=== PATIENT | female | born 1990 | race Caucasian/White ===

== ENCOUNTER 2020-02-09 22:07 | Emergency (ER) | payer OTHER, SELFPAY ==
--- NOTE | ~2020-02-09 | XR_ITS ---
EXAMINATION: XR chest 1V portable EXAM DATE: 02/10/2020 00:27 INDICATION: Fever. TECHNIQUE: Portable AP frontal chest x-ray was obtained. Comparison is made to prior examination from 06/21/2018. FINDINGS: The lungs are clear. There are no pleural effusions. The cardiomediastinal silhouette is within normal limits. There is no pneumothorax suspected. The bones and soft tissues are unremarkab le. IMPRESSION: Normal chest x-ray exam. Reviewed, dictated and finalized at location [facility]. BIRD FARMER IMPRESSION: Normal chest x-ray exam.
[2020-02-09 22:07] VITALS: BP 124/91; PULSE 120; RESP 20; TEMP 36.6; O2SAT 100
--- NOTE | 2020-02-09 22:21 | ECG_ITS ---
Measurements Intervals [place] Rate: 94 P: 26 DC: 142 QRS: 9 QRSD: 82 T: 10 QT: 325 QTc: 408 Interpretive Statements SINUS RHYTHM NORMAL ECG Electronically Signed On 02-10-2020 14:21:27 DIRECT MARKETING COORDINATOR by Shahid Feliciano D.O.
[2020-02-09 22:51] VITALS: BP 118/79; PULSE 106; RESP 20; TEMP 37.3; O2SAT 100
--- NOTE | 2020-02-09 22:53 | PC.NURSE ---
2253- Patient is sitting on the bed, patient is in the direct view of sitter.
[2020-02-09 23:15] LABS: Basophils Absolute Auto 0.02 K/mm3 (0.00-0.10); Basophils Percent Auto 0.2 % (0.0-1.0); Eosinophils Absolute Auto 0.17 K/mm3 (0.02-0.50); Eosinophils Percent Auto 1.8 % (1.0-6.0); Hematocrit 43.2 % (35.0-49.0); Hemoglobin 14.3 g/dL (12.0-15.0); Immature Granulocyte Absolute 0.06 K/mm3 (0.00-0.00); Immature Granulocyte Percent A 0.6 % (0.0-0.0); Lymphocytes Absolute Auto 3.26 K/mm3 (1.10-4.50); Lymphocytes Percent Auto 33.6 % (18.0-42.0); Mean Corpuscular HGB Conc 33.1 g/dL (32.0-36.0); Mean Corpuscular Hemoglobin 32.1 pg (27.0-31.0); Mean Corpuscular Volume 97.1 fL (78.0-102.0); Mean Platelet Volume 9.8 fl (9.2-11.8); Monocytes Absolute Auto 0.64 K/mm3 (0.10-0.90); Monocytes Percent Auto 6.6 % (2.0-11.0); Neutrophils Absolute Auto 5.6 K/mm3 (1.7-7.2); Neutrophils Percent Auto 57.2 % (50.0-70.0); Platelet Count Result 305 K/mm3 (150-420); Red Blood Count 4.45 M/mm3 (4.20-5.40); Red Cell Distribution Width 13.2 % (11.6-14.4); White Blood Count 9.7 K/mm3 (4.8-10.8)
--- NOTE | 2020-02-09 23:25 | PC.NURSE ---
2325-Patient sitting on bed drinking her water, patient is in the direct view of sitter.
[2020-02-09 23:26] LABS: Pregnancy On Board Control Positive; Urine Pregnancy Test Negative
[2020-02-09 23:35] LABS: Add Urine Microscopic? YES; Appearance Urine Clear (Clear); Bilirubin Urine Negative (Negative); Blood Urine 1+ (Negative); Color Urine Yellow (Yellow); Glucose Urine UA Negative (Negative); Ketones Urine Negative (Negative); Leukocyte Esterase Ur Negative LEU/UL (Negative); Nitrate Urine Negative (Negative); Protein Urine Negative (Negative); Specific Grav Ur <= 1.005 (1.010-1.020); Urobilinogen Urine 0.2 mg/dL (0.2-1.0)
[2020-02-09 23:41] LABS: Amphetamine Screen Urine Positive (Negative); Barbiturate Screen Urine Negative (Negative); Benzodiazepines Screen Urine Negative (Negative); Cannabinoid Screen Urine Negative (Negative); Cocaine Screen Urine Negative (Negative); Methadone Screen Urine Negative (Negative); Opiate Screen Urine Negative (Negative); Phencyclidine Screen Urine Negative (Negative)
[2020-02-09 23:43] LABS: Alanine Aminotransferase 29 U/L (14-59); Albumin Level 3.8 g/dL (3.4-5.0); Alkaline Phosphatase 88 U/L (46-116); Anion Gap 10 mmol/L (8-16); Aspartate Amino Transferase 15 U/L (15-37); Bilirubin,Total 0.5 mg/dL (0.00-1.00); Blood Urea Nitrogen 9 mg/dL (7-18); Calcium 8.8 mg/dL (8.5-10.1); Carbon Dioxide 24 mmol/L (21-32); Chloride 104 mmol/L (98-108); Estimated CRCL calculation 116 ml/min; Estimated Glomerular Filt Rate > 60; Ethanol 132 mg/dL (0-6); Glucose 86 mg/dL (70-99); Osmolality Calculated 283 mOsm/kg (285-295); Potassium 3.6 mmol/L (3.5-5.1); Salicylate 3.7 mg/dL (2.8-20.0); Sodium 138 mmol/L (136-145); Thyroid Stimulating Hormone 2.04 uIU/mL (0.36-3.74)
[2020-02-09 23:48] LABS: Bacteria Urine None seen /hpf; Squamous Epithelial Cell Urine Few /hpf (Few); WBC Urine 0-3 /hpf (0-3)
[2020-02-09 23:49] LABS: Acetaminophen < 2 ug/mL (10-30)
[2020-02-10 00:53] LABS: Influenza Control Valid (Valid); SARS-CoV-2 Ag Negative (Negative)
--- NOTE | 2020-02-10 01:05 | PC.NURSE ---
REPORT PROVIDED TO VI PORTER
--- NOTE | 2020-02-10 01:05 | PC.NURSE ---
0106-Patient awake sitting up in bed, patient is in direct view of sitter.
--- NOTE | 2020-02-10 01:38 | PC.NURSE ---
Pt. wanting to leave, called [phone]
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
[2020-02-10 01:59] LABS: Ethanol 70 mg/dL (0-6)
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
--- NOTE | 2020-02-10 02:34 | PC.NURSE ---
0234-Patient is currently speaking on the phone with counselor, sitting on the bed and eating a ham sandwich, chips, cottage cheese, and drinking a Pepsi. Patient is in the direct view of sitter.
[2020-02-10 02:54] VITALS: BP 133/70; PULSE 80; RESP 18; O2SAT 98
== END 2020-02-10 02:59 | disposition home or self-care (01) ==
PROVIDERS: Emergency Provider Emergency Medicine
DX: R46.89 Other symptoms and signs involving appearance and behavior (principal)
CPT/HCPCS: 36415; 71045; 80053; 80307; 81001; 81025; 84443; 85025; 87081; 87426; 87804; 87880; 93005; 99283; 99284

== ENCOUNTER 2020-04-09 11:43 | Emergency (ER) | payer OTHER, SELFPAY ==
--- NOTE | ~2020-04-09 | CT_ITS ---
EXAMINATION: CT abdomen pelvis wo con DATE: 04/09/2020 14:05 INDICATION: Right mid to lower abdominal pain after fall yesterday TECHNIQUE: Computed tomography (CT) of the abdomen and pelvis was performed without intravenous contr ast. Automated exposure control and iterative reconstruction technique were employed. Exam dose: 929 .63 mGy-cm total exam DLP. COMPARISON: 01/26/2012 CT abdomen pelvis FINDINGS: The lung bases are clear of consolidation. Normal heart size. No pericardial or pleural eff usion. Status post cholecystectomy. No hepatic, splenic, pancreatic, adrenal or renal space-occupying mass l esion is evident on this limited noncontrast examination. No urinary tract calculus or hydroureterone phrosis. Normal caliber of the abdominal aorta. No intraperitoneal or retroperitoneal or pelvic mass lesion or adenopathy or ascites. Normal appendix. No bowel obstruction, bowel wall thickening, pneumatosis or intraperitoneal free air . Probable 2.2 cm right adnexal cystic lesion. Pelvic ultrasound may be helpful for more definitive cabrera luation. The uterus and adnexa and urinary bladder are unremarkable otherwise. Probable small hematoma and minimal subcutaneous emphysema in the high right gluteal area. Focal subc utaneous emphysema in the high left gluteal subcutaneous tissues. These findings may be related to re cent injections and/or focal traumatic hematomas. Included skeletal structures are unremarkable, without evidence of fracture or bone destruction. IMPRESSION: Suggested 2.2 cm right adnexal cystic lesion; consider pelvic ultrasound for more defini tive evaluation Status post cholecystectomy Small hematomas/subcutaneous emphysema in the bilateral high gluteal areas, possibly secondary to tra emre or recent subcutaneous injections Reviewed, dictated and finalized at [facility]. Reviewed, dictated and finalized at location [facility]. WASHER IMPRESSION: Suggested 2.2 cm right adnexal cystic lesion; consider pelvic ultr asound for more definitive evaluation Status post cholecystectomy Small hematomas/subcutaneous emphysema in the bilateral high gluteal areas, pos sibly secondary to trauma or recent subcutaneous injections
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
[2020-04-09 12:17] VITALS: BP 113/55; PULSE 112; RESP 20; TEMP 36.7; O2SAT 100
[2020-04-09 12:36] LABS: Add Urine Microscopic? YES; Appearance Urine Cloudy (Clear); Bilirubin Urine Negative (Negative); Blood Urine 3+ (Negative); Color Urine Yellow (Yellow); Glucose Urine UA Negative (Negative); Ketones Urine Negative (Negative); Leukocyte Esterase Ur 1+ (Negative); Nitrate Urine Positive (Negative); Protein Urine 2+ (Negative); Specific Grav Ur >= 1.030 (1.010-1.020); Urobilinogen Urine 0.2 mg/dL (0.2-1.0)
[2020-04-09 12:44] LABS: Bacteria Urine 3+ /hpf; RBC Urine 51-75 /hpf (0-2); Squamous Epithelial Cell Urine Few /hpf (Few); WBC Urine >75 /hpf (0-3)
[2020-04-09 12:49] LABS: Pregnancy On Board Control Positive; Urine Pregnancy Test Negative
[2020-04-09] MEDS: BACLOFEN 10 MG TABLET 20 MG PO (12:58)
[2020-04-09] MEDS: KETOROLAC (*BKC) 60 MG/2 ML VIAL IM (12:58)
[2020-04-09] MEDS: DEXAMETHASONE SOD PHOS INJ 4 MG/ML VIAL 10 MG IM (12:59)
[2020-04-09] MEDS: cefTRIAXone 1 GM VIAL IM (13:51)
[2020-04-09] MEDS: LIDOCAINE HCL 1% LOCAL INJ 20 ML VIAL (13:51)
[2020-04-09] MEDS: PHENAZOPYRIDINE HCL 100 MG TABLET 200 MG PO (13:54)
[2020-04-09 15:08] VITALS: BP 99/66; PULSE 85; RESP 20; TEMP 36.7; O2SAT 100
== END 2020-04-09 14:45 | disposition home or self-care (01) ==
PROVIDERS: Emergency Provider Emergency Medicine; PCP Nurse Practitioner Family
DX: N12 Tubulo-interstitial nephritis, not specified as acute or chronic (principal); S30.0XXA Contusion of lower back and pelvis, initial encounter; K22.70 Barrett's esophagus without dysplasia; F31.9 Bipolar disorder, unspecified; K21.9 Gastro-esophageal reflux disease without esophagitis; E66.9 Obesity, unspecified; F17.210 Nicotine dependence, cigarettes, uncomplicated; W22.09XA Striking against other stationary object, initial encounter
CPT/HCPCS: 74176; 81001; 81025; 87077; 87086; 87088; 87186; 96372; 99283; 99284; A9270; J0696; J1100; J1885

== ENCOUNTER 2020-09-09 23:10 | Emergency (ER) | payer OTHER, SELFPAY ==
--- NOTE | ~2020-09-09 | CT_ITS ---
EXAMINATION: CT abdomen pelvis w con DATE: 09/10/2020 01:37 INDICATION: Right flank pain. Pyelonephritis. TECHNIQUE: Computed tomography (CT) of the abdomen and pelvis was performed with 100 cc Omnipaque 350 intravenous contrast. The dose-length product was 396.85 mGy-cm. Automated exposure control and iter ative reconstruction technique were employed. COMPARISON: CT dated 04/09/2020. FINDINGS: Lung bases are unremarkable. No significant pleural or pericardial effusion. Heart size nor mal. Status post cholecystectomy. The liver, spleen, pancreas, adrenal glands and left kidney are unr emarkable. There are subtle hypodensity in the lower pole of the right kidney, nonspecific. No signif icant perinephric stranding. No hydronephrosis. There is diffuse bladder wall thickening. Nonobstruct hunter bowel gas pattern. Colonic diverticulosis without evidence for diverticulitis there is mild ingui nal lymphadenopathy. Nodular right inguinal soft tissue unchanged, likely of no acute significance. M ild chronic right labial and subcutaneous edema. IMPRESSION: 1. Mild bladder wall thickening, suspicious for cystitis. Correlate clinically. 2: Subtle hypodense area within the lower pole of the right kidney, nonspecific. Consider pyelonephr itis in the appropriate clinical setting. Reviewed, dictated and finalized at location [facility]. IMPRESSION: 1. Mild bladder wall thickening, suspicious for cystitis. Correlate clinically. 2: Subtle hypodense area within the lower pole of the right kidney, nonspecifi c. Consider pyelonephritis in the appropriate clinical setting.
[2020-09-09 23:30] VITALS: BP 108/81; PULSE 119; RESP 20; TEMP 36.3; O2SAT 100
--- NOTE | 2020-09-10 00:07 | ED.ABDPAIN ---
HPI - Abdominal Pain General Chief Complaint: Urogenital-Female Stated Complaint: stomach pain Time Seen by Provider: 09/10/20 00:07 Source: patient Mode of arrival: wheelchair Limitations: no limitations History of Present Illness HPI narrative: 30-year-old woman with a history of pyelonephritis and kidney stones comes in today complaining of right flank pain which is present since yesterday. The pain started in her back and now is in her right lower abdomen and flank. Patient states she has felt hot and cold and nauseous and she has not eaten anything today. She states she can't recall whether not this feels like prior kidney illnesses. Patient states she has done both methamphetamines and marijuana in the last day or so. She denies vomiting, vaginal discharge, vaginal bleeding, dysuria, hematuria, cough and cold symptoms. MD elicited complaint: flank pain Pertinent past history: kidney stones and other ( Pyelonephritis) Onset (ago): day(s) (1) Pain Consistency: constant Location: R flank Severity: severe Quality: sharp Radiation: none Migration to: R flank Exacerbating factors: nothing Relieving factors: nothing Context: confirms history of similar episodes Associated symptoms: nausea Related Data Allergies Allergy/AdvReac Type Severity Reaction Status Date / Time venom-wasp Allergy Severe Anaphylaxis Verified 04/09/20 12:14 acetaminophen [From Tylenol] AdvReac Itching Verified 09/10/20 00:12 Review of Systems Review of Systems: All systems reviewed & are unremarkable except as noted in HPI and below Constitutional: Constitutional: Denies chills and Reports fever(s) Eyes: Eyes: Denies change in vision and Denies photophobia ENT: Denies nasal congestion and Denies sore throat Cardiovascular: Cardiovascular: Denies chest pain and Denies radiating jaw, neck or arm pain Respiratory: Respiratory: Denies cough and Denies dyspnea Gastrointestinal: Gastrointestinal: Reports abdominal pain, Denies diarrhea, Reports nausea and Denies vomiting Genitourinary: Genitourinary: Denies abnormal vaginal bleeding, Denies hematuria, Denies nocturia, Denies dysuria, Reports flank pain and Denies vaginal discharge Musculoskeletal: Musculoskeletal: Reports back pain, Denies arthralgias and Denies joint swelling Integumentary/Breasts: Skin/Breast: Denies pruritus, Denies erythema and Denies rash Neurologic: Denies vertigo, Denies dizziness and Denies syncope Hematologic/Lymphatic: Hematologic/Lymphatic: Denies easy bleeding and Denies easy bruising Allergic/Immunologic: Allergic/Immunologic: Denies lip swelling and Denies throat swelling PMFSH Past Medical History Medical History Barretts esophagus Bipolar disorder GERD (gastroesophageal reflux disease) Major depression, recurrent Nicotine dependence Obesity, Class II, BMI 35-39.9 Pneumonia Severe obesity (BMI >= 40) Surgical History Surgical History History of esophagogastroduodenoscopy (EGD) (~2011) History of placement of ear tubes Family History Family History Father Alcoholism Social History Social History (Updated 09/10/20 @ 00:24 by Ollie Santana MD) Smoking packs per day: 1 Smoking cigarettes per day: 20.0 Years smoked: 14 Smoking pack-years: 14.00 Smoking status: Current every day smoker Alcohol intake: current Alcohol use details: Is a current alcoholic, trying to get into a treatment facility Substance use: current Substance use type: marijuana and amphetamines Additional living arrangements comments: has 2 children Gender identity (if verbalized by the patient): Female Spiritual care concerns: No Exam Const: General: alert Orientation/consciousness: patient oriented x3 Limitations: no limitations Other: Moderate acute distress. HENMT: Head: nor
[2020-09-10 00:34] LABS: Add Urine Microscopic? YES; Appearance Urine Sl Cloudy (Clear); Bilirubin Urine Negative (Negative); Blood Urine 2+ (Negative); Color Urine Light Yellow (Yellow); Glucose Urine UA Negative (Negative); Ketones Urine Negative (Negative); Leukocyte Esterase Ur 1+ (Negative); Nitrate Urine Negative (Negative); Protein Urine Negative (Negative); Specific Grav Ur 1.025 (1.010-1.020); Urobilinogen Urine 0.2 mg/dL (0.2-1.0)
[2020-09-10] MEDS: KETOROLAC 30 MG/ML VIAL (*BKC) IV PUSH (00:36)
[2020-09-10] MEDS: ONDANSETRON INJ 4 MG/2 ML VIAL IV PUSH (00:37)
[2020-09-10] MEDS: SODIUM CHLORIDE 0.9% IV 1,000 ML 999 ML IV CONT (00:37)
[2020-09-10 00:43] LABS: Bacteria Urine Trace /hpf; Squamous Epithelial Cell Urine Few /hpf (Few); WBC Urine 21-30 /hpf (0-3)
[2020-09-10 00:44] LABS: Basophils Absolute Auto 0.05 K/mm3 (0.00-0.10); Basophils Percent Auto 0.4 % (0.0-1.0); Eosinophils Absolute Auto 0.14 K/mm3 (0.02-0.50); Eosinophils Percent Auto 1.1 % (1.0-6.0); Hematocrit 48.1 % (35.0-49.0); Hemoglobin 16.4 g/dL (12.0-15.0); Immature Granulocyte Absolute 0.16 K/mm3 (0.00-0.00); Immature Granulocyte Percent A 1.3 % (0.0-0.0); Lymphocytes Absolute Auto 3.35 K/mm3 (1.10-4.50); Lymphocytes Percent Auto 26.4 % (18.0-42.0); Mean Corpuscular HGB Conc 34.1 g/dL (32.0-36.0); Mean Corpuscular Hemoglobin 31.5 pg (27.0-31.0); Mean Corpuscular Volume 92.3 fL (78.0-102.0); Mean Platelet Volume 10.2 fl (9.2-11.8); Monocytes Absolute Auto 0.68 K/mm3 (0.10-0.90); Monocytes Percent Auto 5.4 % (2.0-11.0); Neutrophils Absolute Auto 8.3 K/mm3 (1.7-7.2); Neutrophils Percent Auto 65.4 % (50.0-70.0); Platelet Count Result 291 K/mm3 (150-420); Pregnancy On Board Control Positive; Red Blood Count 5.21 M/mm3 (4.20-5.40); Red Cell Distribution Width 12.7 % (11.6-14.4); Urine Pregnancy Test Negative; White Blood Count 12.7 K/mm3 (4.8-10.8)
[2020-09-10 00:50] LABS: Alanine Aminotransferase 22 U/L (14-59); Albumin Level 3.6 g/dL (3.4-5.0); Alkaline Phosphatase 104 U/L (46-116); Anion Gap 14 mmol/L (8-16); Aspartate Amino Transferase 12 U/L (15-37); Bilirubin,Total 0.8 mg/dL (0.00-1.00); Blood Urea Nitrogen 11 mg/dL (7-18); CRP 1.1 mg/dL (0.0-0.9); Calcium 9.3 mg/dL (8.5-10.1); Carbon Dioxide 25 mmol/L (21-32); Chloride 104 mmol/L (98-108); Estimated CRCL calculation 84 ml/min; Estimated Glomerular Filt Rate > 60; Glucose 90 mg/dL (70-99); Osmolality Calculated 295 mOsm/kg (285-295); Potassium 3.5 mmol/L (3.5-5.1); Sodium 143 mmol/L (136-145); Total Protein 7.4 g/dL (6.4-8.2)
[2020-09-10 00:52] LABS: Lipase 46 U/L (73-393)
[2020-09-10 01:00] LABS: Lactic Acid Reflex 0.9 mmol/L (0.4-2.0)
[2020-09-10 03:35] VITALS: BP 93/56; PULSE 71; RESP 20; TEMP 36.9; O2SAT 98
== END 2020-09-10 03:43 | disposition home or self-care (01) ==
PROVIDERS: Emergency Provider Emergency Medicine; PCP Nurse Practitioner Family
DX: N12 Tubulo-interstitial nephritis, not specified as acute or chronic (principal)
CPT/HCPCS: 36415; 74177; 80053; 81001; 81025; 83605; 83690; 85025; 86140; 87040; 87077; 87086; 87088; 96365; 96375; 99283; 99284; J0696; J1885; J2405; J7030; Q9967

== ENCOUNTER 2024-08-06 18:45 | Emergency (ER) | payer OTHER, SELFPAY ==
[2024-08-06 18:46] VITALS: BP 116/97; PULSE 98; RESP 20; TEMP 36.8; O2SAT 100
--- NOTE | 2024-08-06 18:50 | ECG_ITS ---
Test Date: 2024-08-06 19:04:43 Measurements Intervals [place] Rate: 79 P: -12 PA: 140 QRS: 18 QRSD: 75 T: 5 QT: 392 QTc: 450 Interpretive Statements SINUS RHYTHM EARLY PRECORDIAL R/S TRANSITION LOW QRS VOLTAGE IN PRECORDIAL LEADS BORDERLINE ECG No previous ECG available for comparison Electronically Signed On 08-06-2024 20:41:20 CDT by Shahid Feliciano D.O.
--- NOTE | 2024-08-06 18:51 | ED_ITS ---
HPI - General Adult General Chief complaint: Syncope Stated complaint: I need water Time Seen by Provider: 08/06/24 18:49 History of Present Illness HPI narrative: Brenda is a 35F with a PMH of bipolar depression, GERD, and polysubstance abuse that was brought to the ED by her grandmother after an episode of syncope. She is a poor historian and it is difficult to get a consistent story. From what can be gathered she became hot in her apartment became lightheaded and passed out. She woke up, was confused, and could not hear so she called her grandmother. She endorse fentanyl use recently as well as occasional meth use. She denies CP, dyspnea, diarrhea and vomiting. She is very lightheaded and nauseated. Related Data Allergies Allergy/AdvReac Type Severity Reaction Status Date / Time venom-wasp Allergy Severe Anaphylaxis Verified 08/06/24 18:51 acetaminophen (From Tylenol) AdvReac Itching Verified 08/06/24 18:51 Review of Systems 2 Review of Systems: All systems reviewed & are unremarkable except as noted in HPI and below PMFSH Past Medical History Medical History Obesity, Class II, BMI 35-39.9 Nicotine dependence Severe obesity (BMI >= 40) Pneumonia Major depression, recurrent Bipolar disorder GERD (gastroesophageal reflux disease) Barretts esophagus Surgical History Surgical History History of esophagogastroduodenoscopy (EGD) (~2011) History of placement of ear tubes Family History Family History Father Alcoholism Social History Social History Smoking packs per day: 1 Smoking cigarettes per day: 20.0 Years smoked: 14 Smoking pack-years: 14.00 Smoking status: Current every day smoker Alcohol intake: current Alcohol use details: Is a current alcoholic, trying to get into a treatment facility Substance use: current Substance use type: marijuana and amphetamines Additional living arrangements comments: has 2 children Occupation/Education: unemployed Gender identity (if verbalized by the patient): Female Spiritual care concerns: No Exam 2 Const: General: cooperative, healthy appearing, comfortable, well developed, alert, awake and Physically active Orientation/consciousness: oriented to person and oriented to place HENMT: Head: normal to inspection, normocephalic and atraumatic Ears: h earing grossly normal bilaterally and external ears normal Face/Nose/Sinus: N ormal external nose present Eyes: General: appearance normal, both eyes and all related structures P eriorbital: periorbital findings normal Sclera: sclerae normal Pupils: E qual, round and reactive pupils present Neck: Neck: normal visual inspection Chest: Chest palpation & inspection: normal inspection of the chest Resp: Effort & Inspection: normal respiratory effort, able to speak in complete sentences and no respiratory distress Auscultation: clear to auscultation bilaterally Cardio: Jugular venous distension: no JVD Rate: regular rate Rhythm: r egular rhythm GI: Inspection: normal to inspection GI Palp: Yes Soft to palpation A uscultation: normal bowel sounds Skin: General skin exam: normal color and no rashes or lesions noted Neuro: General: oriented to person, oriented to place and oriented to time Cranial nerves: Yes Equal, round and reactive pupils present Other: confused and had a hard time completing a story Extrem: General: normal to inspection Psych: Affect: Sad affect present Attitude: cooperative Other: No eye contact Course Course Emergency Course: Ordered labs, fluids, zofran, and EKG as well as put her on the monitor. EKG showed NSR with a rate of 79, No ST elevation or ectopy Vital Signs Vital signs: Vital Signs Temperature 98.2 F 08/06/24 18:46 Pulse Rate 98 08/06/24 18:46 Respiratory Rate 20 08/06/24 18:46 Blood Pressure 116/97 H 08/06/24 18:46 Pulse Oximetry 100 08/06/24 18:46 Oxygen Delivery Room Air 08/06/24 18:46 Temperature 98.2 F 08/06/24 18:46 Pulse Rate 98 08/06/24 18:46 Respiratory Rate 20 08/06/24 18:46 Blood Pressure 116/97 H 08/06/24 18:46 Pulse Oximetry 100 08/06/24 18:46 Oxygen Delivery Room Air 08/06/24 18:46 Medical Decision Making Vital Signs Vital Signs: Vital Signs Temperature 98.2 F 08/06/24 18:46 Pulse Rate 98 08/06/24 18:46 Respiratory Rate 20 08/06/24 18:46 Blood Pressure 116/97 H 08/06/24 18:46 Pulse Oximetry 100 08/06/24 18:46 Oxygen Delivery Room Air 08/06/24 18:46 Temperature 98.2 F 08/06/24 18:46 Pulse Rate 98 08/06/24 18:46 Respiratory Rate 20 08/06/24 18:46 Blood Pressure 116/97 H 08/06/24 18:46 Pulse Oximetry 100 08/06/24 18:46 Oxygen Delivery Room Air 08/06/24 18:46 Lab Data 08/06/24 19:06 08/06/24 19:06 Labs: Lab Results 08/06/24 Range/Units 19:06 WBC 10.5 (4.8-10.8) K/mm3 RBC 4.41 (4.20-5.40) M/mm3 Hgb 12.5 (12.0-15.0) g/dL Hct 38.8 (35.0-49.0) % MCV 88.0 (78.0-102.0) fL MCH 28.3 (27.0-31.0) pg MCHC 32.2 (32-36) g/dL RDW 13.6 (11.6-14.4) % Plt Count 296 (150-420) K/mm3 MPV 9.4 (9.2-11.8) fl Immature Gran % (Auto) 0.8 H (0.0-0.0) % Neut % (Auto) 76.2 H (50.0-70.0) % Lymph % (Auto) 15.8 L (18.0-42.0) % [place] % (Auto) 4.7 (2.0-11.0) % Eos % (Auto) 2.0 (1.0-6.0) % Baso % (Auto) 0.5 (0.0-1.0) % Lymph # (Auto) 1.66 (1.10-4.50) K/mm3 [place] # (Auto) 0.50 (0.10-0.90) K/mm3 Eos # (Auto) 0.21 (0.02-0.50) K/mm3 Baso # (Auto) 0.05 (0.00-0.10) K/mm3 Abs Immat Gran (auto) 0.08 H (0.00-0.00) K/mm3 Absolute Neuts (auto) 8.03 H (1.70-7.20) K/mm3 Absolute Nucleated RBC 0.00 (0.00-0.00) K/mm3 Nucleated RBC % 0.0 (0-0.0) % Sodium 138 (137-145) mmol/L Potassium 3.8 (3.4-5.0) mmol/L Chloride 103 (98-107) mmol/L Carbon Dioxide 24 (22-30) mmol/L Anion Gap 11 (4-12) mmol/L BUN 11 (7-17) mg/dL Creatinine 0.77 (0.7-1.0) mg/dL Estim Creat Clear Calc Not Reportable Estimated GFR > 60 (59 - ) Glucose 171 H (65-110) mg/dL Calculated Osmolality 289 (285-295) mOsm/kg Calcium 9.4 (8.4-10.2) mg/dL Magnesium 1.9 (1.6-2.3) mg/dL Total Bilirubin 0.7 (0.2-1.3) mg/dL AST 37 H (14-36) U/L ALT 30 (6-35) U/L Alkaline Phosphatase 128 H (38-126) U/L Troponin I < 0.012 (0.000-0.034) ng/mL NT-Pro-B Natriuret Pep 147 H (19.9-100) pg/mL Total Protein 7.7 (6.3-8.2) g/dL Albumin 4.0 (3.5-5.1) g/dL Urine Color Yellow (Yellow) Urine Appearance Clear (Clear) Urine pH 5.5 (5.0-8.0) Ur Specific [place] >= 1.030 H (1.010-1.020) Urine Protein 1+ H (Negative) Urine Glucose (UA) Negative (Negative) Urine Ketones Trace H (Negative) Ur Blood (Man) Trace-intact H (Negative) Urine Nitrate Negative (Negative) Urine Bilirubin Negative (Negative) Urine Urobilinogen 0.2 (0.2-1.0) mg/dL Leukocyte Esterase Rfl Negative (Negative) WILLIAM/UL Urine RBC 0-2 (0-2) /hpf Ur Squamous Epith Cells Moderate H (Few) /hpf Hyaline Casts 15-19 H (None) /lpf Granular Casts 5-9 H (None) /lpf Urine Mucus Few H /lpf Urine Opiates Screen Negative (Negative) Urine Methadone Screen Negative (Negative) Ur Barbiturates Screen Negative (Negative) Ur Phencyclidine Scrn Negative (Negative) Ur Amphetamine Screen Not Reportable U Benzodiazepines Scrn Negative (Negative) Urine Cocaine Screen Negative (Negative) U Cannabinoids Screen Positive A (Negative) Ethyl Alcohol < 10 (<10) mg/dL Discharge Plan Discharge Clinical Impression: Syncope Patient Disposition: Home Condition: Stable Instructions: Dehydration (ED) Patient Language: Serbian Prescriptions: No Action ciprofloxacin HCl 500 mg tablet 500 mg PO Q12H Qty: 14 0RF tramadol 50 mg tablet 50 mg PO Q6H PRN (Reason: pain) Qty: 10 0RF ondansetron 4 mg tablet,disintegrating 4 mg PO Q6H PRN (Reason: nausea and vomiting) Qty: 10 0RF Follow-up/Referrals: UNKNOWN,DOCTOR [Primary Care Provider] -
[2024-08-06] MEDS: ONDANSETRON INJ 4 MG/2 ML VIAL IV PUSH (19:05)
[2024-08-06] MEDS: SODIUM CHLORIDE 0.9% IV 1,000 ML 999 ML IV CONT (19:06)
[2024-08-06 19:09] LABS: Basophils Absolute Auto 0.05 K/mm3 (0.00-0.10); Basophils Percent Auto 0.5 % (0.0-1.0); Eosinophils Absolute Auto 0.21 K/mm3 (0.02-0.50); Hematocrit 38.8 % (35.0-49.0); Hemoglobin 12.5 g/dL (12.0-15.0); Immature Granulocyte Absolute 0.08 K/mm3 (0.00-0.00); Immature Granulocyte Percent A 0.8 % (0.0-0.0); Lymphocytes Absolute Auto 1.66 K/mm3 (1.10-4.50); Lymphocytes Percent Auto 15.8 % (18.0-42.0); Mean Corpuscular HGB Conc 32.2 g/dL (32-36); Mean Corpuscular Hemoglobin 28.3 pg (27.0-31.0); Mean Platelet Volume 9.4 fl (9.2-11.8); Monocytes Percent Auto 4.7 % (2.0-11.0); Neutrophils Absolute Auto 8.03 K/mm3 (1.70-7.20); Neutrophils Percent Auto 76.2 % (50.0-70.0); Platelet Count Result 296 K/mm3 (150-420); Red Blood Count 4.41 M/mm3 (4.20-5.40); Red Cell Distribution Width 13.6 % (11.6-14.4); White Blood Count 10.5 K/mm3 (4.8-10.8)
[2024-08-06 20:10] VITALS: BP 106/75; PULSE 87; RESP 20; O2SAT 95
[2024-08-06 20:21] LABS: Anion Gap 11 mmol/L (4-12); Blood Urea Nitrogen 11 mg/dL (7-17); Carbon Dioxide 24 mmol/L (22-30); Chloride 103 mmol/L (98-107); Potassium 3.8 mmol/L (3.4-5.0); Sodium 138 mmol/L (137-145)
[2024-08-06 20:22] LABS: Calcium 9.4 mg/dL (8.4-10.2); Estimated Glomerular Filt Rate > 60; Glucose 171 mg/dL (65-110); Magnesium 1.9 mg/dL (1.6-2.3); Osmolality Calculated 289 mOsm/kg (285-295)
[2024-08-06 20:23] LABS: Alanine Aminotransferase 30 U/L (6-35); Aspartate Amino Transferase 37 U/L (14-36); Bilirubin,Total 0.7 mg/dL (0.2-1.3); Troponin I < 0.012 ng/mL (0.000-0.034)
[2024-08-06 20:24] LABS: Alkaline Phosphatase 128 U/L (38-126); Ethanol < 10 mg/dL (<10); NT Pro B Type Natriuretic Pept 147 pg/mL (19.9-100); Total Protein 7.7 g/dL (6.3-8.2)
--- NOTE | 2024-08-06 20:29 | PC.NURSE ---
pt ambulated to bathroom for urine specimen
[2024-08-06 20:43] LABS: Add Urine Microscopic? YES; Appearance Urine Clear (Clear); Bilirubin Urine Negative (Negative); Blood Urine Trace-intact (Negative); Color Urine Yellow (Yellow); Glucose Urine UA Negative (Negative); Ketones Urine Trace (Negative); Leukocyte Esterase Ur Negative LEU/UL (Negative); Nitrate Urine Negative (Negative); Protein Urine 1+ (Negative); Specific Grav Ur >= 1.030 (1.010-1.020); Urobilinogen Urine 0.2 mg/dL (0.2-1.0); pH Urine 5.5 (5.0-8.0)
[2024-08-06 20:50] LABS: RBC Urine 0-2 /hpf (0-2)
[2024-08-06 20:51] LABS: Hyaline Casts Urine 15-19 /lpf; Mucus Urine Few /lpf; Squamous Epithelial Cell Urine Moderate /hpf (Few)
[2024-08-06 21:13] LABS: Barbiturate Screen Urine Negative (Negative); Benzodiazepines Screen Urine Negative (Negative); Cannabinoid Screen Urine Positive (Negative); Cocaine Screen Urine Negative (Negative); Methadone Screen Urine Negative (Negative); Opiate Screen Urine Negative (Negative); Phencyclidine Screen Urine Negative (Negative)
[2024-08-06 21:20] VITALS: BP 103/74; PULSE 78; RESP 20; O2SAT 99
== END 2024-08-06 21:30 | disposition home or self-care (01) ==
PROVIDERS: Emergency Provider Family Medicine
DX: R55 Syncope and collapse (principal); F17.210 Nicotine dependence, cigarettes, uncomplicated
CPT/HCPCS: 36415; 80053; 80307; 81001; 82077; 83735; 83880; 84484; 85025; 93005; 96361; 96374; 99284; J2405; J7030